=== PATIENT | female | born 1945 | race Caucasian/White ===

== ENCOUNTER 2022-08-22 14:15 | Outpatient (RCR) | payer MEDICARE, OTHER, SELFPAY | END 2023-03-01 23:59 | disposition home or self-care (01) | PROVIDERS: PCP Physician Assistant Medical; Visit Provider Physician Assistant Medical | DX: M79.641 Pain in right hand (principal); Z51.89 Encounter for other specified aftercare | CPT/HCPCS: 97110; 97140; 97165; 97535; X5282 ==

== ENCOUNTER 2023-05-02 10:15 | Outpatient (RCR) | payer MEDICARE, OTHER, SELFPAY | END 2023-07-06 14:40 | disposition home or self-care (01) | PROVIDERS: PCP Physician Assistant Medical; Visit Provider Physician Assistant Medical | DX: M54.42 Lumbago with sciatica, left side (principal); G89.29 Other chronic pain; R26.9 Unspecified abnormalities of gait and mobility; M79.18 Myalgia, other site; R53.1 Weakness; M26.629 Arthralgia of temporomandibular joint, unspecified side; Z51.89 Encounter for other specified aftercare | CPT/HCPCS: 97110; 97140; 97162 ==

== ENCOUNTER 2023-07-04 11:10 | Emergency (ER) | payer MEDICARE, OTHER, SELFPAY ==
[2023-07-04 11:13] VITALS: BP 114/73; PULSE 93; RESP 16; TEMP 36.6; O2SAT 95; BMI 23.9
--- NOTE | 2023-07-04 11:30 | CRLHL7_ITS ---
For Patients: As a result of the Cures Act, medical imaging exams and procedure reports are released immediately into your electronic medical record. You may view this report before your referring provider. If you have questions, please contact your health care provider. INDICATION: Cough TECHNIQUE: Chest 2 views. COMPARISON: None. FINDINGS: Cardiovascular and mediastinum: Heart size and vasculature are normal in caliber and appearance. Lungs and pleural spaces: Right lower lobe airspace opacity. No suspicious pulmonary nodules or masses. No pleural effusion or pneumothorax. Bones and soft tissues: No significant findings. IMPRESSION: Right lower lobe pneumonia. Recommend repeat chest radiograph in approximately 10 weeks to assess for resolution. Dictated by Raul Vivas MD @ 07/04/2023 1:22:39 PM (Electronically Signed)
[2023-07-04 11:52] LABS: Lactate Sepsis w/Reflex* 0.8 mmol/L (0.5-1.9)
[2023-07-04 12:00] LABS: Hematocrit 36.5 % (33.0-51.0); Hemoglobin* 11.8 gm/dL (12.0-16.0); Mean Corpuscular HGB Conc 32 gm/dL (32-36); Mean Corpuscular Hemoglobin 32 pg (26-34); Mean Corpuscular Volume 99 fL (80-100); Platelet Count* 374 K/uL (140-440); White Blood Count* 9.44 K/uL (4.50-11.00)
[2023-07-04] MEDS: 0.9 % SODIUM CHLORIDE 1000 ml 1,000 ML IV (12:00)
[2023-07-04 12:01] LABS: Basophils Percent Auto 0.1 % (0.0-3.0); Eosinophils Percent Auto 1.5 % (0.0-7.0); Immature Granulocytes Pct Auto 3.3 %; Lymphocytes Percent Auto 19.4 % (20-44); Monocytes Percent Auto 6.6 % (0.0-11.0); Neutrophils Percent Auto 69.1 % (42.0-72.0); RDW Coefficient of Variation % 11.6 % (11.5-15.5); Slide Review Reflex No
[2023-07-04 12:22] LABS: Albumin* 3.7 g/dL (3.3-5.0); Chloride* 103 mmol/L (96-114); Sodium* 138 mmol/L (135-149)
[2023-07-04 12:25] LABS: Alanine Aminotransferase* 37 U/L (4-35); Alkaline Phosphatase* 85 U/L (40-150); Anion Gap 11 mEq/L (7-15); Aspartate Amino Transferase* 27 U/L (12-35); Bilirubin Total* 0.4 mg/dL (0.1-1.5); Blood Urea Nitrogen* 12 mg/dL (7-30); Carbon Dioxide* 24 mmol/L (20-32); Creatinine* 0.6 mg/dL (0.5-1.5); Est. Creatinine Clearance* 40.21; Estimated Glomerular Filt Rate 94 ml/min; Glucose* 113 mg/dL (60-115)
[2023-07-04 12:26] LABS: Calcium* 9.3 mg/dL (8.4-10.6)
[2023-07-04 12:27] LABS: Potassium* 3.8 mmol/L (3.6-5.1)
[2023-07-04 12:36] LABS: PCR FLU A Negative PCR FLU A (Negative); PCR FLU B Negative PCR FLU B (Negative); PCR RSV Negative PCR RSV (Negative)
[2023-07-04 12:39] LABS: C Reactive Protein* 16.8 mg/dL (0.5-1.0); SARS PCR* Negative SARS-CoV-2 (Negative)
--- NOTE | 2023-07-04 13:23 | ED.GENADULT ---
HPI - General Adult General Date Seen: 07/04/23 Chief complaint: Shortness of Breath/Dyspnea Stated complaint: Cough, short of breath Time Seen by Provider: 07/04/23 11:14 Source: patient Mode of arrival: ambulatory Limitations: no limitations History of Present Illness HPI narrative: Patient is a 77-year-old woman who presents with cough and fatigue. She has been coughing for about a week, they were out of town and she was seen at some facility, had a chest x-ray and she says they said there was some spot that they wanted the radiologist to weigh in on but the x-ray was never red while she was there. She says they prescribed her Augmentin which she started few days ago. She also was given a shot of steroid as well as a B12 shot. She says she continues to feel fatigued and the cough is the same. She is not significantly short of breath. She has not had vomiting although she has felt nauseated and has had some diarrhea. Appetite has been decreased and she has lost several lb. She has no underlying lung disease, general health is good, takes a statin. Does not smoke although she did smoke a few cigarettes a day for about 30 years. She quit 15 years ago. She is here today with her . Reports COVID testing has been negative but they wonder about RSV. Related Data Home Medications Medication Instructions Recorded Confirmed amoxicillin 875 mg-potassium 1 tab PO BID 07/04/23 07/04/23 clavulanate 125 mg tablet rosuvastatin 20 mg tablet 20 mg PO QPM 07/04/23 07/04/23 Previous Rx's Medication Instructions Recorded azithromycin 250 mg tablet See Rx Instructions PO .COMPLEX #6 07/04/23 (Zithromax Z-Andre) tabs Allergies Allergy/AdvReac Type Severity Reaction Status Date / Time medroxyprogesterone Allergy Unknown Verified 07/04/23 11:19 Sulfa drugs Allergy Mild Rash Uncoded 02/24/22 10:23 Review of Systems Status of ROS: Reports: 10 or more systems reviewed and unremarkable except as noted in History and below [facility] Social History Smoking Status: Former smoker How often do you have a drink containing alcohol: 2-3 times a week How many standard drinks containing alcohol do you have on a typical day: 1 or 2 AUDIT-C Alcohol total score: 3 Non-prescribed substance use: denies use Exam Narrative: Exam Narrative: Vital signs as noted above. In general, an alert, nontoxic woman. Fatigued. Head: Normocephalic, atraumatic. Eyes: Pupils are equal reactive. Extraocular movements are full. Conjunctivae are normal. ENT: Mucous membranes are moist. Neck: Supple without lymphadenopathy. Heart: Regular rate and rhythm. No murmur or rub. Lungs: Lungs overall clear. No increased work of breathing. Abdomen: Soft and nontender. No organomegaly. Extremities: Well perfused. No edema. No calf tenderness. Pulses intact. Neurologic: Patient is alert and oriented to person and place. Speech is fluent. Face is symmetric. Moves all extremities equally. Affect: Normal. Skin: Warm and dry. Well perfused. Const: Vital Signs, click to edit/add: Vital Signs - 24 hr 07/04/23 11:13 Temperature 97.8 F Pulse Rate [Right Pulse Oximeter] 93 Respiratory Rate 16 Blood Pressure [Ri ght Upper Arm] 114/73 Pulse Oximetry 95 Oxygen Delivery Me thod Room Air Documenting provider has reviewed patient's vital signs: yes Course Course ED Course: We stab list an IV here, gave her L of normal saline. Labs are reassuring, her white blood cell count is 9.44, hemoglobin 11.8. No significant left shift. Metabolic panel is normal, lactate is 0.8, LFTs unremarkable, CRP is elevated at 16.8. COVID influenza and RSV all negative. Chest x-ray by my review shows a right lower lobe pneumonia, final radiology read is the same. She is nontoxic, labs are normal, she is not hypoxic. She is on Augmentin but I think it would be reasonable to add azithromycin to cover for atypicals and give her 24-36 hours to see how she is feeling. Reviewed with her she is still not turning around that I would recommend she come back as we may need to consider IV antibiotics, but I do think a trial of broadened oral antibiotics is reasonable 1st. She is comfortable with that. Reviewed reasons to return such as worsening difficulty breathing, fevers, chills, vomiting etcetera. If not entirely better in a week she should be seen by primary care. Vital Signs Vital signs: Initial Vital Signs Temperature 97.8 F 07/04/23 11:13 Temperature Source Temporal Artery Scan 07/04/23 11:13 Pulse Rate 93 07/04/23 11:13 Respiratory Rate 16 07/04/23 11:13 Blood Pressure 114/73 07/04/23 11:13 Blood Pressure Mean 86 07/04/23 11:13 Blood Pressure Position Sitting 07/04/23 11:13 Pulse Oximetry 95 07/04/23 11:13 Oxygen Delivery Method Room Air 07/04/23 11:13 Vital Signs Temperature 97.8 F 07/04/23 11:13 Pulse Rate 93 07/04/23 11:13 Respiratory Rate 16 07/04/23 11:13 Blood Pressure 114/73 07/04/23 11:13 Pulse Oximetry 95 07/04/23 11:13 Oxygen Delivery Method Room Air 07/04/23 11:13 Temperature 97.8 F 07/04/23 11:13 Pulse Rate 93 07/04/23 11:13 Respiratory Rate 16 07/04/23 11:13 Blood Pressure 114/73 07/04/23 11:13 Pulse Oximetry 95 07/04/23 11:13 Oxygen Delivery Method Room Air 07/04/23 11:13 Medications Administered Medications: Discontinued Medications Generic Name Dose Route Start Last Admin Trade Name Freq PRN Reason Stop Dose Admin Sodium Chloride 1,000 mls @ 1,000 mls/hr 07/04/23 11:30 07/04/23 12:00 0.9 % Sodium Chloride 1000 Ml IV 07/04/23 12:29 1,000 mls/hr .Q1H RISA Administration Medical Decision Making Lab Data Labs: Lab Results 07/04/23 Range/Units 11:45 WBC 9.44 (4.50-11.00) K/uL RBC 3.70 L (4.00-5.20) m/uL Hgb 11.8 L (12.0-16.0) gm/dL Hct 36.5 (33.0-51.0) % MCV 99 (80-100) fL MCH 32 (26-34) pg MCHC 32 (32-36) gm/dL RDW Coeff of Mayank 11.6 (11.5-15.5) % Plt Count 374 (140-440) K/uL Neut % (Auto) 69.1 (42.0-72.0) % Lymph % (Auto) 19.4 L (20-44) % [place] % (Auto) 6.6 (0.0-11.0) % Eos % (Auto) 1.5 (0.0-7.0) % Baso % (Auto) 0.1 (0.0-3.0) % Neut # (Auto) 6.50 (1.7-7.0) K/uL Lymph # (Auto) 1.80 (0.90-2.90) K/uL [place] # (Auto) 0.60 (0.00-0.90) K/UL Eos # (Auto) 0.10 (0.00-0.50) K/uL Baso # (Auto) 0.00 (0.00-0.30) K/uL Abs Immat Gran (auto) 0.30 (0.00-0.30) K/uL Imm/Tot Granulo (auto) 3.3 % Sodium 138 (135-149) mmol/L Potassium 3.8 (3.6-5.1) mmol/L Chloride 103 (96-114) mmol/L Carbon Dioxide 24 (20-32) mmol/L Anion Gap 11 (7-15) mEq/L BUN 12 (7-30) mg/dL Creatinine 0.6 (0.5-1.5) mg/dL Estimated Creat Clear 40.21 Estimated GFR 94 ml/min Glucose 113 (60-115) mg/dL Lactate 0.8 (0.5-1.9) mmol/L Calcium 9.3 (8.4-10.6) mg/dL Total Bilirubin 0.4 (0.1-1.5) mg/dL Direct Bilirubin 0.0 (0.0-0.5) mg/dL AST 27 (12-35) U/L ALT 37 H (4-35) U/L Alkaline Phosphatase 85 (40-150) U/L C-Reactive Protein 16.8 H (0.5-1.0) mg/dL Total Protein 7.0 (6.0-8.3) g/dL Albumin 3.7 (3.3-5.0) g/dL SARS-CoV-2 (PCR) Negative SARS-CoV-2 (Negative) Influenza Type A (PCR) Negative PCR FLU A (Negative) Influenza Type B (PCR) Negative PCR FLU B (Negative) RSV (PCR) Negative PCR RSV (Negative) Discharge Plan Discharge Clinical Impression: Community acquired pneumonia Patient Disposition: Home, Self-Care Condition: Stable Instructions: Community Acquired Pneumonia (DC) Additional Instructions: Your x-ray shows a pneumonia on the right side. Continue your Augmentin but add the azithromycin as discussed. If after a few doses of azithromycin you are not starting to feel a little better, I would recommend that you come back as we may need to consider admission and IV antibiotics. If at any time you have high fevers, shaking chills, significant difficulty breathing, or other acute worsening, return to the emergency department. If you are not completely better in the next week, follow-up with your primary doctor. Radiologist recommends repeat imaging in about 10 weeks to ensure resolution. Prescriptions: New azithromycin [Zithromax Z-Andre] 250 mg tablet See Rx Instructions .ROUTE .COMPLEX Qty: 6 0RF Rx Instructions: For 250 mg dose pack: take 500 mg today (day 1), then 250 mg for 4 days (days 2-5) No Action amoxicillin-pot clavulanate 875-125 mg tablet 1 tab PO BID rosuvastatin 20 mg tablet 20 mg PO QPM Follow Up/Referrals: Vonnie Vick PA-C [Primary Care Provider] - Stand Alone Forms: [employer] Info Instructions
[2023-07-04 13:25] VITALS: BP 132/66; PULSE 85; O2SAT 94
== END 2023-07-04 13:39 | disposition home or self-care (01) ==
PROVIDERS: Emergency Provider Emergency Medicine; PCP Physician Assistant Medical
DX: J18.9 Pneumonia, unspecified organism (principal)
CPT/HCPCS: 36415; 71046; 80048; 80076; 83605; 85025; 86140; 87631; 96360; 99284; J7030

== ENCOUNTER 2023-07-05 11:37 | Emergency (ER) | payer MEDICARE, OTHER, SELFPAY ==
[2023-07-05 11:50] VITALS: BP 133/65; PULSE 80; RESP 16; TEMP 36.8; O2SAT 98; BMI 23.9
--- NOTE | 2023-07-05 12:05 | ED.GENADULT ---
HPI - General Adult General Chief complaint: Cough Stated complaint: pneumonia Time Seen by Provider: 07/05/23 11:39 Source: patient and family Mode of arrival: ambulatory Limitations: no limitations History of Present Illness HPI narrative: 77-year-old female presenting today requesting admission to the hospital for pneumonia. Patient was seen yesterday after having been ill with a cough and fatigue for a total of 11 days. She was placed on Augmentin several days ago at an outside facility and then azithromycin was added yesterday. She does have a right-sided pneumonia on imaging, blood work was unremarkable. She states that she is marginally better today states that her coughing fit seems to be not as aggressive as they have been in the last week. She has been afebrile. However she continues to be quite fatigued and does have shortness of breath with physical activity, therefore she was under the impression that if she was not completely better today that she should return for hospital admission and that is what she is requesting today. Patient is not a smoker, she drove from [place] 2 days ago. She has been there for many months as that is their 2nd home. Therefore when her symptoms started she had no recent travel. She is not on any hormonal therapy. She denies any recent surgery. Looking through her vital signs today and yesterday she has not been tachypneic or hypoxic. Patient takes rosuvastatin for hyperlipidemia. Related Data Home Medications Medication Instructions Recorded Confirmed amoxicillin 875 mg-potassium 1 tab PO BID 07/04/23 07/04/23 clavulanate 125 mg tablet rosuvastatin 20 mg tablet 20 mg PO QPM 07/04/23 07/04/23 Previous Rx's Medication Instructions Recorded azithromycin 250 mg tablet See Rx Instructions PO .COMPLEX #6 07/04/23 (Zithromax Z-Andre) tabs Allergies Allergy/AdvReac Type Severity Reaction Status Date / Time medroxyprogesterone Allergy Unknown Verified 07/04/23 11:19 Sulfa drugs Allergy Mild Rash Uncoded 02/24/22 10:23 Review of Systems Status of ROS: Reports: 10 or more systems reviewed and unremarkable except as noted in History and below PFSH PFSH Social History Smoking Status: Former smoker How often do you have a drink containing alcohol: 2-3 times a week How many standard drinks containing alcohol do you have on a typical day: 1 or 2 AUDIT-C Alcohol total score: 3 Non-prescribed substance use: denies use Exam Narrative: Exam Narrative: Well-nourished well-developed patient in no acute distress. Alert and oriented. Answers questions appropriately. Mood and affect are appropriate. Thoughts are goal oriented and rational. No tangential or magical thinking noted. Patient speaks in full sentences without needing to catch her breath. During the history and physical portion, patient fluctuates between 94-99% on room air. HEENT: Normocephalic atraumatic. Pupils are equally round reactive to light. Extraocular muscles are intact. Conjunctivae are moist without any icterus noted. Moist mucous membranes. Neck is supple. Cardiovascular: Heart is regular rate and rhythm S1 and S2 are present without any murmurs. Lungs: Clear to auscultation on the left. She does have some crackles on the right base. Abdomen: Soft and nontender nondistended with normal bowel sounds. Extremities: Bilateral lower extremities are without edema. Normal DP and PT pulses. Skin: Well perfused without any obvious rashes. Const: Vital Signs, click to edit/add: Vital Signs - 24 hr 07/05/23 11:50 Temperature 98.3 F Pulse Rate [Pulse Oximeter] 80 Respiratory Rate 16 Blood Pressure [Ri ght Upper Arm] 133/65 Pulse Oximetry 98 Oxygen Delivery Me thod Room Air Course Course ED Course: We had a long conversation today about the course of pneumonia. We discussed that the fact that she is feeling slightly better today is reassuring. We discussed other possibilities of her shortness of breath including PE for which she has no risk factors nor any vital sign changes to support that diagnosis. We discussed the possibility of strain on the heart and did opt to do an EKG and troponin today. EKG, read by me, shows normal sinus rhythm pulse of 71. Troponin was normal. I did not repeat her chest x-ray today as 1 was done yesterday. We did ambulate the patient to make sure that her oxygen saturations remained stable, oxygen saturations fluctuated 96 and 98%, heart rate in the 80s. Patient tolerated ambulation without difficulty. We discussed that given the fact that she is not hypoxic and again, states that she has slightly improved today, that she had no criteria for admission at this time. We discussed continuing with the azithromycin and Augmentin. We discussed reasons to return to the ER which would include fever, inability to eat, or worsening shortness of breath. Patient and seemed displeased with the conversation given the fact that again, they came today prepared to be admitted. We discussed that she should expect the cough to linger for a couple of weeks even after the infection has been treated. Vital Signs Vital signs: Initial Vital Signs Temperature 98.3 F 07/05/23 11:50 Temperature Source Temporal Artery Scan 07/05/23 11:50 Pulse Rate 80 07/05/23 11:50 Respiratory Rate 16 07/05/23 11:50 Blood Pressure 133/65 07/05/23 11:50 Blood Pressure Mean 87 07/05/23 11:50 Pulse Oximetry 98 07/05/23 11:50 Oxygen Delivery Method Room Air 07/05/23 11:50 Vital Signs Temperature 98.3 F 07/05/23 11:50 Pulse Rate 80 07/05/23 11:50 Respiratory Rate 16 07/05/23 11:50 Blood Pressure 133/65 07/05/23 11:50 Pulse Oximetry 98 07/05/23 11:50 Oxygen Delivery Method Room Air 07/05/23 11:50 Temperature 98.3 F 07/05/23 11:50 Pulse Rate 80 07/05/23 11:50 Respiratory Rate 16 07/05/23 11:50 Blood Pressure 133/65 07/05/23 11:50 Pulse Oximetry 98 07/05/23 11:50 Oxygen Delivery Method Room Air 07/05/23 11:50 Medical Decision Making MDM Narrative Medical decision making narrative: 77-year-old female with pneumonia, no hypoxia present. Vitally stable. We discussed the course of pneumonia. Discussed reasons to return to the ER. Patient had no other questions. Medical Records Medical records reviewed: Yes I reviewed the patient's medical records Lab Data Lab results reviewed: Yes I reviewed the patient's lab results Labs: Lab Results 07/05/23 Range/Units 12:13 POC Troponin I 0.00 L (0.01-0.04) ng/ml ECG Data Attestation: I personally reviewed and interpreted this ECG as follows: Discharge Plan Discharge Clinical Impression: Community acquired pneumonia Patient Disposition: Home, Self-Care Condition: Stable Additional Instructions: Make sure to rest as much as necessary. Increase daily fluid intake. Make sure to practice deep breathing multiple times per day- this will open up your lungs improvement worsening shortness of breath. Return to the ER if you develop fever, vomiting or increasing shortness of breath. Prescriptions: No Action amoxicillin-pot clavulanate 875-125 mg tablet 1 tab PO BID rosuvastatin 20 mg tablet 20 mg PO QPM azithromycin [Zithromax Z-Andre] 250 mg tablet See Rx Instructions .ROUTE .COMPLEX Qty: 6 0RF Rx Instructions: For 250 mg dose pack: take 500 mg today (day 1), then 250 mg for 4 days (days 2-5) Follow Up/Referrals: Vonnie Vick PA-C [Primary Care Provider] - Stand Alone Forms: [employer] Info Instructions
== END 2023-07-05 13:06 | disposition home or self-care (01) ==
PROVIDERS: Emergency Provider Family Medicine; PCP Physician Assistant Medical
DX: J18.9 Pneumonia, unspecified organism (principal)
CPT/HCPCS: 84484; 93005; 99284

== ENCOUNTER 2024-03-11 08:00 | Outpatient (RCR) | payer MEDICARE, OTHER, SELFPAY | END 2024-03-11 09:43 | disposition home or self-care (01) | PROVIDERS: PCP Physician Assistant Medical; Visit Provider Physician Assistant Medical | DX: M25.511 Pain in right shoulder (principal); G89.29 Other chronic pain; Z74.09 Other reduced mobility; M62.81 Muscle weakness (generalized); Z51.89 Encounter for other specified aftercare | CPT/HCPCS: 97110; 97140; 97161 ==

== ENCOUNTER 2024-09-05 09:46 | Outpatient (CLI) | payer MEDICARE, OTHER, SELFPAY ==
--- NOTE | 2024-09-05 11:07 | P.ANES_ITS ---
Anesthesia Charges Start Date/Time Anesthesia Start Date: 09/05/24 Anesthesia Start Time: 10:38 Stop Date/Time Anesthesia Stop Date: 09/05/24 Anesthesia Stop Time: 11:06 Summary Extremes of Age - Over 70 or under 1: MINE LABORER Coding CPT Codes CPT Codes: JIA LWR INTST NDSC NOS - 34141 ([id number]) P1 - NORMAL HEALTHY PATIENT, QK - MANAGER ENVIRONMENTAL 2-4 CNCRNT ANESusy PROC, QX - MINE LABORER SVC W/ MD MED DIRECTION Additional Codes: Summary - Extremes of Age - Over 70 or under 1: MINE LABORER ([id number])
--- NOTE | 2024-09-05 11:07 | W.ANESCHARGE ---
Anesthesia Charges Start Date/Time Anesthesia Start Date: 09/05/24 Anesthesia Start Time: 10:38 Stop Date/Time Anesthesia Stop Date: 09/05/24 Anesthesia Stop Time: 11:06 Summary Extremes of Age - Over 70 or under 1: PULMONOLOGY TECHNICIAN Coding CPT Codes CPT Codes: JIA LWR INTST NDSC NOS - 29248 ([id number]) P1 - NORMAL HEALTHY PATIENT, QK - CHARGE LPN 2-4 CNCRNT ANESusy PROC, QX - PULMONOLOGY TECHNICIAN SVC W/ MD MED DIRECTION Additional Codes: Summary - Extremes of Age - Over 70 or under 1: PULMONOLOGY TECHNICIAN ([id number])
--- NOTE | 2024-09-05 12:28 | P.ANES_ITS ---
Anesthesia Charges Start Date/Time Anesthesia Start Date: 09/05/24 Anesthesia Start Time: 10:38 Stop Date/Time Anesthesia Stop Date: 09/05/24 Anesthesia Stop Time: 11:06 Summary Extremes of Age - Over 70 or under 1: MDA Coding CPT Codes CPT Codes: JIA LWR INTST NDSC NOS - 10362 ([id number]) P1 - NORMAL HEALTHY PATIENT, QK - STAFF DEVELOPMENT COORDINATOR RN 2-4 CNCRNT ANESusy PROC, QX - TRAY SERVER SVC W/ MD MED DIRECTION Additional Codes: Summary - Extremes of Age - Over 70 or under 1: MDA ([id number])
--- NOTE | 2024-09-05 12:28 | W.ANESCHARGE ---
Anesthesia Charges Start Date/Time Anesthesia Start Date: 09/05/24 Anesthesia Start Time: 10:38 Stop Date/Time Anesthesia Stop Date: 09/05/24 Anesthesia Stop Time: 11:06 Summary Extremes of Age - Over 70 or under 1: MDA Coding CPT Codes CPT Codes: JIA LWR INTST NDSC NOS - 95073 ([id number]) P1 - NORMAL HEALTHY PATIENT, QK - ASSISTANT PROFESSOR OF PSYCHOLOGY 2-4 CNCRNT ANESusy PROC, QX - SWITCH COUPLER SVC W/ MD MED DIRECTION Additional Codes: Summary - Extremes of Age - Over 70 or under 1: MDA ([id number])
== END 2024-09-05 09:47 | disposition home or self-care (01) ==
LOC: OP CLINIC 09:48
PROVIDERS: PCP Physician Assistant Medical; Visit Provider Internal Medicine Gastroenterology
DX: Z12.11 Encounter for screening for malignant neoplasm of colon (principal); D12.0 Benign neoplasm of cecum; Q43.8 Other specified congenital malformations of intestine; Z86.0101 Personal history of adenomatous and serrated colon polyps
CPT/HCPCS: 00811; 45380; 88305; 99100; J2704

== ENCOUNTER 2025-04-10 09:45 | Outpatient (CLI) | payer MEDICARE, OTHER, SELFPAY ==
--- NOTE | 2025-04-10 11:21 | P.ANES_ITS ---
Anesthesia Charges Start Date/Time Anesthesia Start Date: 04/10/25 Anesthesia Start Time: 11:04 Stop Date/Time Anesthesia Stop Date: 04/10/25 Anesthesia Stop Time: 11:17 Summary Extremes of Age - Over 70 or under 1: PROFESSOR OF VOICE Coding CPT Codes CPT Codes: ANES UPR GI NDSC PX NOS - 22155 ([id number]) P1 - NORMAL HEALTHY PATIENT, QK - BLUEPRINT MAKER 2-4 CNCRNT ANES PROC, QX - PROFESSOR OF VOICE SVC W/ MD MED DIRECTION Additional Codes: Summary - Extremes of Age - Over 70 or under 1: PROFESSOR OF VOICE ([id number])
--- NOTE | 2025-04-10 11:21 | W.ANESCHARGE ---
Anesthesia Charges Start Date/Time Anesthesia Start Date: 04/10/25 Anesthesia Start Time: 11:04 Stop Date/Time Anesthesia Stop Date: 04/10/25 Anesthesia Stop Time: 11:17 Summary Extremes of Age - Over 70 or under 1: SUPERINTENDENT MAINTENANCE AIRPORTS Coding CPT Codes CPT Codes: ANES UPR GI NDSC PX NOS - 18861 ([id number]) P1 - NORMAL HEALTHY PATIENT, QK - SPIKEMAKING SUPERVISOR 2-4 CNCRNT ANES PROC, QX - SUPERINTENDENT MAINTENANCE AIRPORTS SVC W/ MD MED DIRECTION Additional Codes: Summary - Extremes of Age - Over 70 or under 1: SUPERINTENDENT MAINTENA[employer]CE [employer]TS ([id number])
--- NOTE | 2025-04-10 11:59 | P.ANES_ITS ---
Anesthesia Charges Start Date/Time Anesthesia Start Date: 04/10/25 Anesthesia Start Time: 11:04 Stop Date/Time Anesthesia Stop Date: 04/10/25 Anesthesia Stop Time: 11:17 Summary Extremes of Age - Over 70 or under 1: MDA Coding CPT Codes CPT Codes: ANES UPR GI NDSC PX NOS - 35509 ([id number]) QK - MARKETING PROJECT LEAD 2-4 CNCRNT ANES PROC, QX - WOOL HAT FORMING MACHINE TENDER SVC W/ MD MED DIRECTION, P1 - NORMAL HEALTHY PATIENT Additional Codes: Summary - Extremes of Age - Over 70 or under 1: MDA ([id number])
== END 2025-04-10 09:46 | disposition home or self-care (01) ==
LOC: OP CLINIC 09:48
PROVIDERS: PCP Physician Assistant Medical; Visit Provider Internal Medicine Gastroenterology
DX: R13.10 Dysphagia, unspecified (principal)
CPT/HCPCS: 00731; 43239; 88305; 99100; J2704; J3010